=== PATIENT | female | born 1960 | race Caucasian/White ===

== ENCOUNTER 2016-04-24 03:27 | Emergency (ER) | payer MEDICARE ==
[2016-04-24 03:38] VITALS: TEMP 98.4; BMI 28.3
[2016-04-24] MEDS ORDERED: Lidocaine 2%-Epinephrine 1:100,000 20ml vial INF ONE (04:57)
--- NOTE | 2016-04-24 04:57 | EDPRACDOC ---
- General Chief Complaint: Wound Stated Complaint: FALL, HEAD LACERATION Information Source: Patient Exam Limitations: No Limitations - History of Present Illness Onset: ASSISTANT PASTRY CHEF HPI: C/o falling asleep on toilet and then falling over and hitting head on nearby cabinet. Has hx of same, says "it takes her awhile to go". Pain Severity: Reports: Moderate Injuries/Pain Location: Reports: head Reason for Fall: Reports: other (fell asleep) Loss of Consciousness: no loss of consciousness Associated Symptoms (Fall): Reports: denies symptoms Allergies/Adverse Reactions: Allergies sulfamethoxazole [From ] Allergy (Mild, Verified 04/24/16 03:38) Itching trimethoprim [From Decra] Allergy (Mild, Verified 04/24/16 03:38) Itching Home Medications: Ambulatory Orders Amlodipine Besylate [Norvasc] 10 mg PO DAILY 07/07/15 Amoxicillin Trihydrate [Amoxicillin] 500 mg PO TID #30 tab 07/07/15 Carvedilol [Coreg] 6.25 mg PO BID 07/07/15 Chlorthalidone 50 mg PO DAILY 07/07/15 Clonazepam [Klonopin] 1 mg PO BID 07/07/15 Cyclobenzaprine HCl [Flexeril] 10 mg PO TID 07/07/15 Gabapentin [Neurontin] 600 mg PO QID 07/07/15 Glipizide [Glucotrol] 5 mg PO DAILY(STEPHEN) 07/07/15 Isosorbide Mononitrate [Isosorbide Mononitrate ER] 30 mg PO DAILY 07/07/15 Ketorolac Tromethamine [Toradol] 10 mg PO Q6H PRN #12 tab 07/07/15 Lisinopril [Prinivil] 20 mg PO DAILY 07/07/15 Methadone HCl [Methadose] 30 mg PO QID 07/07/15 Omeprazole [Prilosec] 40 mg PO DAILY 07/07/15 Tramadol HCl [Ultram] 50 mg PO TID PRN 07/07/15 Ibuprofen Tablet [Motrin] 800 mg PO TID PRN #30 tab 04/24/16 ED Past Medical History - History Reviewed Yes Nurses notes reviewed and agree except as marked - Patient Medical History Cardiac History: Reports: Hypertension, Heart Attack (2009), Hypercholesterolemia Psychological History: Denies: Depression Systemic History: Reports: Diabetes Surgical History: Reports: Tonsillectomy/Adnoidectomy - Social Medical History Smoking Status: Heavy tobacco smoker (5 or more cigarettes/day or daily pipe/ cigar) EDM Review of Systems - Review of Systems ROS Negative Except as Marked: Yes All systems reviewed and were negative except as marked Integumentary: Bruising - Physical Exam Constitutional: No apparent distress, Alert Oriented to: Time, Person, Place Last recorded Vital Signs: Last Vital Signs Temp 98.4 F 04/24/16 03:32 Pulse 78 04/24/16 03:32 Resp 18 04/24/16 03:32 BP 117/68 04/24/16 03:32 Pulse Ox 95 04/24/16 03:32 Oxygen Pulse Oxygen Saturation 95 O2 Device Room Air Oxygen Flow Rate Fraction of Inspired Oxygen ( FIO2) - HEENT Head: Laceration, Swelling, Tender Eye Exam: negative: Conjunctival Injection, Scleral Icterus Oropharynx: negative: Drooling TMJ: Normal Nose: No Symptoms Reported Neck: Normal - Respiratory/Cardiovascular Respiratory: Normal - CTA Cardiovascular: Normal - GI Tenderness: Non tender - Musculoskeletal Back: Normal Extremities: Normal - Integumentary Skin: Normal - Neurologic Mood Description: Normal Thought: Coherent ED Injury/Fall Exam - Physical Exam Head Injury: lacerations, swelling, tenderness Extremity Exam: no evidence of injury Skin: Normal - [place] Coma Score Best Eye Response ([place]): (4) open spontaneously Best Verbal Response ([place]): (5) oriented Best Motor Response ([place]): (6) obeys commands [place] Total: 15 ED Procedures - Suture/Laceration Suture #1 Left Upper Parietal Wound Length (cm): 5 Wound's Depth, Shape: superficial, linear Wound Explored: clean Irrigated w/ Saline (ccs): 100ml Betadine Prep?: Yes Anesthesia: Lidocaine w/ Epi (2%) Volume Anesthetic (ccs): 7 Wound Debrided: minimal Wound Undermining: minimal Wound Margins: Revised Wound Repaired With: Omar Number of Sutures: 9 - Additional Information neuro exam nml Decision Time to Discharge: 06:10 - Departure Disposition: Home Condition: Stable Final Diagnosis: Fall Qualifiers: Encounter type: initial encounter Qualified Code(s): W19.XXXA - Unspecified fall, initial encounter Instructions: Fall Prevention (ED) Education/Counseling Given To: Patient Education/Counseling Given Regarding: Diagnosis, Treatment, Prognosis, Follow Up Referrals: Mark Beltran MD [Primary Care Provider] - One Week Prescriptions: Ibuprofen Tablet [Motrin] 800 mg PO TID PRN #30 tab PRN Reason: Pain Additional Instructions: Follow up with primary care. Take motrin for pain. Keep wound and dry for at least 2 days. Take out omar here or at primary care in 10 days. Return to ED for any new or worsening symptoms.
--- NOTE | 2016-04-24 05:14 | DIRPT ---
CLINICAL DATA: Status post fall off toilet. Hit top of head on cabinet. Initial encounter. EXAM: CT HEAD WITHOUT CONTRAST TECHNIQUE: Contiguous axial images were obtained from the base of the skull through the vertex without intravenous contrast. COMPARISON: CT of the head performed 04/12/2005 FINDINGS: There is no evidence of acute infarction, mass lesion, or intra- or extra-axial hemorrhage on CT. The posterior fossa, including the cerebellum, brainstem and fourth ventricle, is within normal limits. The third and lateral ventricles, and basal ganglia are unremarkable in appearance. The cerebral hemispheres are symmetric in appearance, with normal mathew-white differentiation. No mass effect or midline shift is seen. There is no evidence of fracture; visualized osseous structures are unremarkable in appearance. The orbits are within normal limits. There is complete opacification of the right maxillary sinus. The remaining paranasal sinuses and mastoid air cells are well-aerated. Soft tissue laceration and swelling are noted at the left vertex, and mild soft tissue swelling is noted overlying the frontal calvarium. IMPRESSION: 1. No evidence of traumatic intracranial injury or fracture. 2. Soft tissue laceration and swelling at the left vertex, and mild soft tissue swelling overlying the frontal calvarium. 3. Complete opacification of the right maxillary sinus. Electronically Signed By: Dakota Escobar M.D. On: 04/24/2016 05:12
[2016-04-24] MEDS ORDERED: IBUPROFEN 800 MG TAB PO ONE (06:13)
[2016-04-24 06:49] VITALS: BP 99/56; PULSE 71
== END 2016-04-24 06:50 | disposition home or self-care (01) ==
LOC: ED 03:27
DX: S01.01XA Laceration without foreign body of scalp, initial encounter (principal); W18.11XA Fall from or off toilet without subsequent striking against object, initial encounter; Y93.84 Activity, sleeping
CPT/HCPCS: 12002; 70450; 99283; A9270; J3490